=== PATIENT | female | born 1990 | race African-American/Black ===

== ENCOUNTER 2023-07-02 05:15 | Inpatient (IN) | payer OTHER ==
[2023-07-02] MEDS ORDERED: ELECTROLYTE-148 SOLN 500 ML IV ONE (06:00)
[2023-07-02] MEDS ORDERED: PROMETHAZINE HCL 25 MG/1 ML VIAL IVPB ONE (06:00)
[2023-07-02] MEDS ORDERED: BUTORPHANOL TARTRATE 2 MG/ML VIAL IVPB ONE (06:00)
[2023-07-02 06:07] VITALS: RESP 18; BMI 31.2
[2023-07-02] MEDS ORDERED: ELECTROLYTE-148 SOLN 1,000 ML IV SCH (06:30)
[2023-07-02 07:38] LABS: INR 0.95 (0.83-1.09)
[2023-07-02 07:40] LABS: ACTIVATED PTT 27.1 SECONDS (25.2-36.5)
[2023-07-02 08:18] LABS: BASO % 0.3 % (0-2.0); EOS % 1.3 % (0-4.5); HEMATOCRIT 37.4 % (32.4-45.2); LYMPH % 19.1 % (8-40); MCH 31.8 pg (25.7-33.7); MCHC 32.1 g/dl (32.0-36.0); MEAN CELL VOLUME 99.1 fl (80-96); MEAN PLT VOLUME 7.9 fl (7.5-11.1); NEUT % 71.3 % (42.8-82.8); PLATELET COUNT 369 10^3/uL (134-434); RBC 3.78 M/mm3 (3.60-5.2); RDW 14.3 % (11.6-15.6); WHITE BLOOD COUNT 18.4 K/mm3 (4.0-10.0)
[2023-07-02 08:45] LABS: POTASSIUM 3.8 mmol/L (3.5-5.1)
[2023-07-02 08:46] LABS: BLOOD UREA NITROGEN 11.3 mg/dL (7-18); CALCIUM 8.4 mg/dL (8.5-10.1)
[2023-07-02 08:50] LABS: CREATININE 0.6 mg/dL (0.55-1.3)
[2023-07-02 09:35] LABS: ANISOCYTOSIS 0; HELMET CELLS 0; HOWELL-JOLLY BODIES 0; MACROCYTOSIS 0; OVALOCYTE 0; ROULEAU 0; SICKELED CELLS 0; TARGET CELLS 0; TEAR DROP CELLS 0; TOXIC GRANULATION 0
[2023-07-02] MEDS ORDERED: CITRIC ACID/SODIUM CITRATE 30 ML UNIT-DOSE CUP PO ONE (09:41)
[2023-07-02] MEDS: ELECTROLYTE-148 SOLN 1,000 ML IV SCH (09:45)
[2023-07-02 13:18] LABS: HIV INTERPRETATION NEGATIVE (NEGATIVE)
[2023-07-02] MEDS ORDERED: SODIUM CHLORIDE 0.9% P/F 10 ML VIAL IJ ONE (13:29)
[2023-07-02] MEDS ORDERED: METOCLOPRAMIDE HCL INJECTION 10 MG/2 ML VIAL ONE (13:29)
[2023-07-02] MEDS ORDERED: OXYTOCIN 10 UNITS/ML VIAL ONE (13:29)
[2023-07-02] MEDS ORDERED: ONDANSETRON 4 MG/2 ML VIAL ONE (13:29)
[2023-07-02] MEDS ORDERED: ceFAZolin SODIUM 1 GM VIAL ONE (13:29)
[2023-07-02] MEDS ORDERED: KETOROLAC TROMETHAMINE 30 MG/1 ML VIAL ONE (13:29)
[2023-07-02] MEDS ORDERED: FENTANYL CITRATE/PF 50 MCG/ML VIAL ONE (13:31)
[2023-07-02] MEDS ORDERED: morphine SULFATE/PF 1 MG/2 ML (2cc Syringe - QUVA) ONE (13:31)
[2023-07-02] MEDS: OXYTOCIN 20 UNITS in 0.9% NS 20 UNIT/1,000 ML INFUS.BAG IV SCH (15:48)
[2023-07-02] MEDS ORDERED: ACETAMINOPHEN 325 MG TABLET (FP) PO PRN (16:40)
[2023-07-02] MEDS ORDERED: METHYLERGONOVINE MALEATE 0.2 MG/1 ML AMP IM PRN (16:40)
[2023-07-02] MEDS ORDERED: IBUPROFEN 800 MG/8 ML IJ IVPB PRN (16:40)
[2023-07-02] MEDS ORDERED: ACETAMINOPHEN 1000 MG/100 ML BAG IVPB PRN (16:42)
[2023-07-02] MEDS ORDERED: OXYTOCIN 20 UNITS in 0.9% NS 20 UNIT/1,000 ML INFUS.BAG IV ONE (17:55)
[2023-07-02] MEDS: FERROUS SO4 325 MG TABLET (FP) PO SCH (18:18)
[2023-07-03] MEDS: OXYTOCIN 20 UNITS in 0.9% NS 20 UNIT/1,000 ML INFUS.BAG IV SCH ×2 (03:15→16:56)
[2023-07-03] MEDS ORDERED: oxyCODONE HCL 5 MG TABLET PO PRN (04:40)
[2023-07-03 08:02] LABS: HEMATOCRIT 30.6 % (32.4-45.2); MCH 32.3 pg (25.7-33.7); MCHC 32.6 g/dl (32.0-36.0); MEAN CELL VOLUME 98.9 fl (80-96); MEAN PLT VOLUME 7.5 fl (7.5-11.1); PLATELET COUNT 333 10^3/uL (134-434); RDW 13.9 % (11.6-15.6); WHITE BLOOD COUNT 25.9 K/mm3 (4.0-10.0)
[2023-07-03 08:58] LABS: ANISOCYTOSIS 0; HELMET CELLS 0; HOWELL-JOLLY BODIES 0; MACROCYTOSIS 0; OVALOCYTE 0; ROULEAU 0; SICKELED CELLS 0; TARGET CELLS 0; TEAR DROP CELLS 0; TOXIC GRANULATION 0
[2023-07-03] MEDS: FERROUS SO4 325 MG TABLET (FP) PO SCH ×2 (09:00→16:55)
[2023-07-03] MEDS: PRENATAL VITAMINS W/ FOLIC ACID TABLET (FP) PO SCH (09:00)
[2023-07-03] MEDS: ELECTROLYTE-148 SOLN 1,000 ML IV SCH (09:01)
[2023-07-03] MEDS: SIMETHICONE 80 MG TAB.CHEW (FP) PO PRN (14:13)
[2023-07-03] MEDS: IBUPROFEN 600 MG TABLET (FP) PO PRN (14:13)
[2023-07-03] MEDS: oxyCODONE HCL 5 MG TABLET PO PRN (15:53)
[2023-07-03] MEDS ORDERED: BISACODYL 10 MG SUPP.RECT RC PRN (16:40)
[2023-07-04] MEDS: SIMETHICONE 80 MG TAB.CHEW (FP) PO PRN ×2 (00:28→08:32)
[2023-07-04] MEDS: SENNOSIDES/DOCUSATE COMBO (SENNA PLUS) TABLET (UD) PO PRN ×2 (00:28→22:23)
[2023-07-04] MEDS: oxyCODONE HCL 5 MG TABLET PO PRN (00:28)
[2023-07-04] MEDS: IBUPROFEN 600 MG TABLET (FP) PO PRN (08:30)
[2023-07-04] MEDS: FERROUS SO4 325 MG TABLET (FP) PO SCH ×2 (08:31→17:09)
[2023-07-04] MEDS: PRENATAL VITAMINS W/ FOLIC ACID TABLET (FP) PO SCH (09:23)
[2023-07-05] MEDS: FERROUS SO4 325 MG TABLET (FP) PO SCH (09:14)
[2023-07-05] MEDS: PRENATAL VITAMINS W/ FOLIC ACID TABLET (FP) PO SCH (09:14)
[2023-07-05] MEDS: SIMETHICONE 80 MG TAB.CHEW (FP) PO PRN (09:14)
[2023-07-05] MEDS: oxyCODONE HCL 5 MG TABLET PO PRN (09:15)
[2023-07-05 09:30] VITALS: BP 115/73; PULSE 99; TEMP 97.9
== END 2023-07-05 13:00 | disposition home or self-care (01) | DRG 540 ==
LOC: JDEL 05:15 → JLDR 05:50 → J3W 18:00
PROVIDERS: ADMIT Obstetrics & Gynecology; ATTEND Obstetrics & Gynecology
PROC: 10D00Z1 Extraction of Products of Conception, Low, Open Approach (ICD-10-PCS; principal; 2023-07-02)
PROC: 10907ZC Drainage of Amniotic Fluid, Therapeutic from Products of Conception, Via Natural or Artificial Opening (ICD-10-PCS; 2023-07-02)
DX: O76 Abnormality in fetal heart rate and rhythm complicating labor and delivery (principal); O69.1XX0 Labor and delivery complicated by cord around neck, with compression, not applicable or unspecified; Z3A.40 40 weeks gestation of pregnancy; Z37.0 Single live birth
CPT/HCPCS: 36415; 80048; 85025; 85610; 85730; 86780; 86850; 86900; 86901; 87389; 88307-TC; 94010